=== PATIENT | female | born 1960 | race Caucasian/White ===

== ENCOUNTER → 2024-07-05 | Outpatient (CLI) | payer MEDICAID, SELFPAY ==
--- NOTE | 2024-07-05 | XR_ITS ---
Examination: Right knee 4 views TECHNIQUE: AP oblique lateral axial right knee 4 views Exam date and time: July 05, 2024 0738 hours INDICATIONS: Right knee pain beginning 2 months ago. FINDINGS: Moderate to advanced tricompartment osteoarthritis, most severe medial and patellofemoral joints Small knee effusion No fracture No patellar dislocation IMPRESSION:: Moderate to advanced tricompartment osteoarthritis
== END | disposition home or self-care (01) ==
LOC: CDIM 07:11
PROVIDERS: PCP Nurse Practitioner Family; Referring Provider Nurse Practitioner Family; Visit Provider Nurse Practitioner Family
DX: M17.11 Unilateral primary osteoarthritis, right knee (principal)
CPT/HCPCS: 73564